=== PATIENT | female | born 1935 | race Caucasian/White ===

== ENCOUNTER 2021-03-02 15:37 | Emergency (ER) | payer MEDICARE ==
[2021-03-02] MEDS ORDERED: Lidocaine 2% Jelly 5 ML TUBE ONE (15:53)
[2021-03-02] MEDS ORDERED: Ondansetron PF 4 MG/2 ML Vial ONE (15:55)
[2021-03-02] MEDS ORDERED: Morphine 4 MG/ML VIAL ONE (15:55)
== END 2021-03-02 17:50 | disposition home or self-care (01) ==
LOC: BURERS 15:37
DX: K59.00 Constipation, unspecified (principal); K64.4 Residual hemorrhoidal skin tags; Z79.899 Other long term (current) drug therapy; Z79.891 Long term (current) use of opiate analgesic; Z87.891 Personal history of nicotine dependence
CPT/HCPCS: 96374; 96375; J2270; J2405